=== PATIENT | male | born 1960 | race Caucasian/White ===

== ENCOUNTER 2017-11-05 15:52 | Emergency (ER) | payer BC, OTHER ==
[~2017-11-05] VITALS: Ht 175.3 cm; Wt 90.7 kg
[2017-11-05 15:57] VITALS: TEMP 36.8; Ht 175.3 cm; Wt 90.7 kg
[2017-11-05] MEDS ORDERED: SODIUM CHLORIDE 0.9% 1000ML 1,000 ML IV ONE (16:36)
[2017-11-05] MEDS ORDERED: SODIUM CHLORIDE 0.9% 1000ML 1,000 ML IV STA (16:36)
[2017-11-05] MEDS ORDERED: OPTIRAY 320 IV PRN (16:45)
--- NOTE | 2017-11-05 16:46 | EMERGENCY ROOM VISIT NOTE ---
History Report prepared by Jessica: Malissa Cerda Under the Supervision of: Dr. Francisco Hudson M.D. First contact with patient: 16:25 Chief Complaint: DIARRHEA Stated Complaint: CRAMPS W/ DIARRHEA W/ BLOOD TODAY,SICK 2 DAYS Nursing Triage Summary: pt reports NVD since wed. last night cramping and pain in abdomen became worse and then today noted blood in toilet after BM History of Present Illness The patient is a 57 year old male who presents to the Emergency Room with complaints of constant nausea beginning Wednesday, two days ago. Last night, the patient started to have lower abdominal cramps and diarrhea. The patient states his abdominal cramps have been intermittent since last night. This morning, he reports his abdominal cramps were so severe they caused him to dry heave. The patient notes this afternoon he thought he had to pass gas. He states when he passed gas, he also released some bright red blood with his gas. Presently, the patient reports his abdominal discomfort is constant. He denies any cough or back pain. The patient has a history of depression and GERD. The patient reports having a endoscopy and CT two years ago which showed the patient had IBS. He denies any recent antibiotic uses, recent travel or sick contact. He denies any history of hemorrhoids. Source of History: patient Onset: two days ago Position: other (generalized) Quality: other (nausea) Timing: constant Associated Symptoms: + nausea, + vomiting, + abdominal pain, No cough, No back pain Review of Systems See HPI for pertinent positives & negatives. A total of 10 systems reviewed and were otherwise negative. Past Medical & Surgical Medical Problems: (1) Depression (2) GERD (gastroesophageal reflux disease) (3) IBS (irritable bowel syndrome) Old medical records were reviewed. Nurse's notes were reviewed and I agree with. Family History Patient reports no known family medical history. Social History Smoking Status: Never Smoker Marital Status: Housing Status: lives with significant other Occupation Status: employed Current/Historical Medications Scheduled Acetaminophen (Tylenol), 1,000 MG PO PRN UD Amoxicillin & Pot Clavulanate (Augmentin 875-125 mg), 875 MG PO BID Ascorbic Acid (Vitamin C), 500 MG PO DAILY Calcium Carbonate-Vitamin D (Calcium), 1 TAB PO DAILY Cholecalciferol (Vitamin D3), 1 TAB PO DAILY Citalopram Hydrobromide (Citalopram Hydrobromide), 1 TAB PO DAILY Multivitamins/Minerals (Mvi With Minerals), 1 TAB PO DAILY Ranitidine (Zantac), 150 MG PO PRN Zinc Sulfate (Zinc Sulfate), 1 TAB PO DAILY Scheduled PRN Oxycodone Immediate Rel Tab (Roxicodone Ir), 1-2 TAB PO Q4H PRN for Severe Pain Allergies Coded Allergies: No Known Allergies (Unverified , 11/05/17) Physical Exam Vital Signs Date Time Temp Pulse Resp B/P (MAP) Pulse Ox O2 Delivery O2 Flow Rate FiO2 11/05/17 20:15 66 18 147/80 97 Room Air 11/05/17 19:03 71 18 135/75 97 Room Air 11/05/17 17:27 62 16 145/83 98 Room Air 11/05/17 15:57 36.8 77 20 169/83 94 Room Air Physical Exam General: Mildly-ill appearing middle-aged male, non-toxic appearing, in no acute distress. HEENT: Normal cephalic atraumatic. Pupils are equal round and reactive to light. Extraocular movements are intact. Oropharynx is pink with moist mucous membranes. No swelling of the mouth lips or tongue. Neck: Supple with a midline trachea. No meningeal signs or stiffness, no JVD or bruits. No Stridor. Chest: Clear to auscultation bilaterally. No wheezes or rhonchi. No increased work of breathing. Heart: regular rate and rhythm. Abdomen: Mild tenderness to left lower abdomen, no rebound guarding or rigidity. Extremities: No cyanosis clubbing or edema. No calf tenderness or assymetry Spine/Back. Non tender to palpation. No CVA tenderness Skin: Good turgor without rashes. Neurologic exam: Cranial nerves two through 12 are intact. Motor and sensation are intact and symmetrical throughout. Rectal: normal external exam, scant red stool guaiac positive. Medical Decision & Procedures ER Provider Diagnostic Interpretation: Radiology results as stated below per my review and radiologist interpretation: CT OF THE ABDOMEN AND PELVIS WITH CONTRAST FINDINGS: The liver, spleen, adrenal glands, kidneys and pancreas are unremarkable. There is no biliary or pancreatic ductal dilatation. There is no peripancreatic or pericholecystic infiltration with there is no hydronephrosis or high no ureter. The caliber of small and large bowel are normal. Mild wall thickening of the descending colon with minimal pericholecystic infiltration. There is no free air, pneumatosis or portal venous gas. The appendix is normal. There is sigmoid diverticulosis without evidence for acute diverticulitis. Major vasculature of the abdomen and pelvis is patent. There is no abscess. No suspicious osseous lesion is identified. IMPRESSION: Mild wall thickening with mild pericolonic infiltration involving the descending colon consistent with colitis. Differential considerations include infectious, ischemic and inflammatory etiologies. No free air or abscess. Electronically signed by: Td Mckeon M.D. Laboratory Results 11/05/17 17:20 Red Blood Count 5.29, Mean Corpuscular Volume 89.2, Mean Corpuscular Hemoglobin 32.3, Mean Corpuscular Hemoglobin Concent 36.2, Mean Platelet Volume 10.5, Neutrophils (%) (Auto) 81.7, Lymphocytes (%) (Auto) 8.5, Monocytes (%) (Auto) 9.1, Eosinophils (%) (Auto) 0.2, Basophils (%) (Auto) 0.1, Neutrophils # (Auto) 10.73, Lymphocytes # (Auto) 1.12, Monocytes # (Auto) 1.19, Eosinophils # (Auto) 0.02, Basophils # (Auto) 0.01 11/05/17 17:20 Test 11/05/17 16:55 11/05/17 17:20 Urine Color DK YELLOW Urine Appearance CLEAR (CLEAR) Urine pH 5.0 (4.5-7.5) Urine Specific Hitchcock 1.029 (1.000-1.030) Urine Protein 1+ (NEG) Urine Glucose (UA) NEG (NEG) Urine Ketones TRACE (NEG) Urine Occult Blood NEG (NEG) Urine Nitrite NEG (NEG) Urine Bilirubin NEG (NEG) Urine Urobilinogen NEG (NEG) Urine Leukocyte Esterase NEG (NEG) Urine WBC (Auto) 1-5 /hpf (0-5) Urine RBC (Auto) 0-4 /hpf (0-4) Urine Hyaline Casts (Auto) 5-10 /lpf (0-5) Urine Epithelial Cells (Auto) 10-20 /lpf (0-5) Urine Bacteria (Auto) NEG (NEG) White Blood Count 13.12 K/uL (4.8-10.8) Red Blood Count 5.29 M/uL (4.7-6.1) Hemoglobin 17.1 g/dL (14.0-18.0) Hematocrit 47.2 % (42-52) Mean Corpuscular Volume 89.2 fL (80-100) Mean Corpuscular Hemoglobin 32.3 pg (25-34) Mean Corpuscular Hemoglobin Concent 36.2 g/dl (32-36) Platelet Count 196 K/uL (130-400) Mean Platelet Volume 10.5 fL (7.4-10.4) Neutrophils (%) (Auto) 81.7 % Lymphocytes (%) (Auto) 8.5 % Monocytes (%) (Auto) 9.1 % Eosinophils (%) (Auto) 0.2 % Basophils (%) (Auto) 0.1 % Neutrophils # (Auto) 10.73 K/uL (1.4-6.5) Lymphocytes # (Auto) 1.12 K/uL (1.2-3.4) Monocytes # (Auto) 1.19 K/uL (0.11-0.59) Eosinophils # (Auto) 0.02 K/uL (0-0.5) Basophils # (Auto) 0.01 K/uL (0-0.2) RDW Standard Deviation 43.6 fL (36.4-46.3) RDW Coefficient of Variation 13.4 % (11.5-14.5) Immature Granulocyte % (Auto) 0.4 % Immature Granulocyte # (Auto) 0.05 K/uL (0.00-0.02) Anion Gap 8.0 mmol/L (3-11) Est Creatinine Clear Calc Drug Dose 97.6 ml/min Estimated GFR () 105.2 Estimated GFR (Non- 90.8 BUN/Creatinine Ratio 10.2 (10-20) Calcium Level 9.2 mg/dl (8.5-10.1) Total Bilirubin 0.9 mg/dl (0.2-1) Direct Bilirubin 0.1 mg/dl (0-0.2) Aspartate Amino Transf (AST/SGOT) 21 U/L (15-37) Alanine Aminotransferase (ALT/SGPT) 53 U/L (12-78) Alkaline Phosphatase 83 U/L (45-117) Total Protein 8.1 gm/dl (6.4-8.2) Albumin 4.1 gm/dl (3.4-5.0) Lipase 168 U/L (73-393) Laboratory studies as stated above per my review. Medications Administered Medications (Trade) Dose Ordered Sig/Mahin Route Start Time Stop Time Status Last Admin Dose Admin Sodium Chloride 1,000 ml @ 999 mls/hr Q1H1M STAT IV 11/05/17 16:36 11/05/17 17:36 DC 11/05/17 16:36 999 MLS/HR Sodium Chloride 1,000 ml @ 200 mls/hr Q5H ONCE IV 11/05/17 16:36 11/05/17 20:34 DC 11/05/17 17:35 200 MLS/HR Oxycodone HCl (Roxicodone Immediate Rel 5MG Home Pack) 1 homepack UD ONCE PO 11/05/17 20:15 11/05/17 20:16 DC 11/05/17 20:21 1 HOMEPACK Amoxicillin/ Clavulanate Potassium (Augmentin 875MG Home Pack) 1 homepack UD ONCE PO 11/05/17 20:15 11/05/17 20:16 DC 11/05/17 20:21 1 HOMEPACK ED Course 1634: Past medical records reviewed. The patient was evaluated in room B10, and a complete history and physical examination were performed. 1636: Ordered Sodium Chloride 1000 ml @ 200 mls/hr IV, Sodium Chloride 1000 ml @ 999 mls/hr IV. 1818: The patient Is headed over to CT. 1948: The patient is resting comfortably. 1999: Discussed the patient's case with Dr. Gopal ESPINAL. The patient will be evaluated for further management. 2015: Ordered Amoxicillin/Clavulanate Potassium 1 homepack PO, Oxycodone HCl 1 homepack PO. 2019: Upon reevaluation, the patient is resting comfortably. I discussed the results and treatment plan with him. He verbalized agreement of the treatment plan. The patient was discharged home. Medical Decision Differential diagnoses include: GI bleed, colitis, diverticulitis, dehydration, electrolyte or metabolic abnormality This patient comes in as described above. he's had crampy abdominal pain more so on the left side. He had episode of bloody stool that was bright red. On exam, he has no peritonitis. IV access was established. His white count is mildly elevated. his hemoglobin is normal and not low. He has no acute electrolyte or metabolic abnormalities. He has no peritonitis. His white count is mildly elevated. He has no acute electrode or metabolic abnormalities. He was hydrated with IV normal saline here he was offered pain medication but declined. I did a rectal exam there is no masses or abnormalities seen or felt. He does have a small amount of bloody mucus/stool that was guaiac positive. CAT scan shows findings consistent with a mild colitis. I discussed the case Dr. Herron we will put him on Augmentin 875 mg twice a day the first dose was given here as well as a prescription home pack for pain but primarily use acetaminophen but do not exceed the over-the- counter recommended dosages. For breakthrough pain, he was given OxyIR if needed one or 2 pills every 4 hours as needed he was warned that this could make him drowsy do not take for drinking, driving, working Dr. Herron's office is can call Wednesday and give him an to be seen and likely have endoscopy. He is to return over the weekend if: increasing pain or bleeding, worsening of symptoms, any new problems or concerns. Medication Reconcilliation Current Medication List: was personally reviewed by me Blood Pressure Screening Patient's blood pressure: Normal blood pressure Consults Time Called: 1957 Consulting Physician: Dr. Gopal [facility]ado [facility] Returned Call: 1999 Discussed the patient's case with Dr. Gopal [facility]. The patient will be evaluated for further management. Impression Primary Impression: Colitis Scribe Attestation The scribe's documentation has been prepared under my direction and personally reviewed by me in its entirety. I confirm that the note above accurately reflects all work, treatment, procedures, and medical decision making performed by me. Departure Information Dispostion Home / Self-Care Prescriptions Oxycodone Immediate Rel Tab (ROXICODONE IR) 5 Mg Tab 1-2 TAB PO Q4H Y for Severe Pain, #15 TAB Prov: Francisco Hudson M.D. 11/05/17 Amoxicillin & Pot Clavulanate (Augmentin 875-125 mg) 1 Tab Tab 875 MG PO BID for 10 Days, #20 TAB Prov: Francisco Hudson M.D. 11/05/17 Referrals Bethany Melton M.D. (PCP) Forms HOME CARE DOCUMENTATION FORM, IMPORTANT VISIT INFORMATION, WORK / SCHOOL INSTRUCTIONS Patient Instructions My [facility] Additional Instructions Rest. Mild diet. Use Augmentin 875 mg twice a day for 10 daysantibiotic For pain, may use Tylenol(Acetaminophen) a maximum of 650 mg every 6 hours. Do not take with any other medications containing Tylenol/acetaminophen Follow-up with Dr. Herron from GI. They will call you this week and you will likely need colonoscopy Return to ER if: increasing pain or bleeding, worsening of symptoms, fever orchills, any new problems or concerns
[2017-11-05] MEDS ORDERED: ACET-1256 PO (17:23)
[2017-11-05] MEDS ORDERED: CITA10TA4 PO (17:23)
[2017-11-05] MEDS ORDERED: MULT-513 PO (17:23)
[2017-11-05] MEDS ORDERED: CHOL1000 PO (17:23)
[2017-11-05] MEDS ORDERED: ASCO1CAP3 PO (17:23)
[2017-11-05] MEDS ORDERED: ZNTT/150 PO (17:23)
[2017-11-05] MEDS ORDERED: CALC-51 PO (17:23)
[2017-11-05] MEDS ORDERED: ZINC1CAP PO (17:23)
[2017-11-05 17:43] LABS: BASO % 0.1 %; BASO ABS # 0.01 K/uL (0-0.2); EOS % 0.2 %; EOS ABS # 0.02 K/uL (0-0.5); HEMATOCRIT 47.2 % (42-52); HEMOGLOBIN 17.1 g/dL (14.0-18.0); IG# 0.05 K/uL (0.00-0.02); LYMPH % 8.5 %; LYMPH ABS # 1.12 K/uL (1.2-3.4); MEAN CELL VOLUME 89.2 fL (80-100); MEAN CORPUSCULAR HEMOGLOBIN 32.3 pg (25-34); MEAN CORPUSCULAR HGB CONC 36.2 g/dl (32-36); MEAN PLATELET VOLUME 10.5 fL (7.4-10.4); MONO % 9.1 %; MONO ABS # 1.19 K/uL (0.11-0.59); NEUT % 81.7 %; NEUT ABS # 10.73 K/uL (1.4-6.5); PLATELET COUNT 196 K/uL (130-400); RED CELL DISTRIBUTION WIDTH CV 13.4 % (11.5-14.5); RED CELL DISTRIBUTION WIDTH SD 43.6 fL (36.4-46.3); WHITE BLOOD COUNT 13.12 K/uL (4.8-10.8)
[2017-11-05 18:03] LABS: ALBUMIN 4.1 gm/dl (3.4-5.0); CALCIUM 9.2 mg/dl (8.5-10.1); CREATININE 0.93 mg/dl (0.60-1.40); POTASSIUM 3.8 mmol/L (3.5-5.1)
[2017-11-05 18:06] LABS: TOTAL PROTEIN 8.1 gm/dl (6.4-8.2)
--- NOTE | 2017-11-05 19:03 | DIAGNOSTIC IMAGING REPORT ---
CT OF THE ABDOMEN AND PELVIS WITH CONTRAST CLINICAL HISTORY: Abdominal pain with bloody diarrhea. COMPARISON STUDY: None. TECHNIQUE: Following IV administration of 120 mL of Optiray-320, axial images of the abdomen and pelvis were obtained from the lung bases to the proximal femurs. Images were reviewed in the axial, sagittal, and coronal planes. IV contrast was administered without complication. A dose lowering technique was utilized adhering to the principles of ALARA. CT DOSE: 513.26 mGy.cm FINDINGS: The liver, spleen, adrenal glands, kidneys and pancreas are unremarkable. There is no biliary or pancreatic ductal dilatation. There is no peripancreatic or pericholecystic infiltration with there is no hydronephrosis or high no ureter. The caliber of small and large bowel are normal. Mild wall thickening of the descending colon with minimal pericholecystic infiltration. There is no free air, pneumatosis or portal venous gas. The appendix is normal. There is sigmoid diverticulosis without evidence for acute diverticulitis. Major vasculature of the abdomen and pelvis is patent. There is no abscess. No suspicious osseous lesion is identified. IMPRESSION: Mild wall thickening with mild pericolonic infiltration involving the descending colon consistent with colitis. Differential considerations include infectious, ischemic and inflammatory etiologies. No free air or abscess. Electronically signed by: Td Mckeon M.D. 11/05/2017 7:02 PM Dictated Date/Time: 11/05/2017 6:57 PM
[2017-11-05] MEDS ORDERED: AMOX875T PO (20:05)
[2017-11-05] MEDS ORDERED: OXYC1TAB3 PO (20:05)
[2017-11-05 20:15] VITALS: BP 147/80; PULSE 66; O2SAT 97
[2017-11-05] MEDS ORDERED: OXYCODONE IR HOME PACK PO ONE (20:15)
[2017-11-05] MEDS ORDERED: AMOXICIL/CLAVU 875MG HOME PACK PO ONE (20:15)
== END 2017-11-05 20:26 | disposition home or self-care (01) ==
LOC: C.EDB 15:55
DX: K52.9 Noninfective gastroenteritis and colitis, unspecified (principal); K21.9 Gastro-esophageal reflux disease without esophagitis; F32.9 Major depressive disorder, single episode, unspecified; Z98.890 Other specified postprocedural states; Z79.899 Other long term (current) drug therapy

== ENCOUNTER → 2018-05-20 | Outpatient (CLI) | payer OTHER ==
[~2018-05-20] MED LIST: ACET-1256 PO; ASCO1CAP3 PO; CALC-51 PO; CHOL1000 PO; CITA10TA4 PO; MULT-513 PO; RANI150T85 PO; ZINC1CAP PO
--- NOTE | 2018-05-21 06:39 | PAP/PSG TECHNICIAN REPORT ---
[facility] [employer] Art [employer] Polysomnogram Report Study name: None Report date: 05/21/2018 Study date: 05/20/2018 Referring Physician: Bethany Melton MD Name: KANDY FRAZIER Interpreting Physician: Lalo Carlson M.D. Date of : 1960 [employer] Art Teacher: Clayton Clarke RPSGT. Sex: Male Age: 57 StudyType: PSG PAP Weight: Height: 57 years, Height 5' 8" BMI: Medications: CITALOPRAM 20 MG, RANITIDINE 150 MG, Patient History PATIENT HAS HISTORY OF SNORING, LOW ENERGY AND DAYTIME SLEEPINESS. HE RECENTLY HAD A HOME SLEEP STUDY DONE AND WAS POSITIVE FOR DIONNA. HE IS HERE TODAY FOR A CPAP TITRATION. ESS = 14 RM 1 Parameters Monitored NPSG: E1-M2, E2-M1, Fp1-M2, Fp2-M1, F3-M2, F4-M2, F4-M1, C3-M2, C4-M2, C4-M1, O1-M2, O2-M2, O2-M1, T3-M2, T4-M1, P3-M2, P4-M1, CHIN1, CHIN2, HR, EKG, Legs, PFLOW, SNOR, FLOW, CFLOW, Tidal Volume, THOR, ABDO, SpO2, PLTH, CPRESS, ETCO2 Wave, ETCO2, pH Sleep Architecture Sleep Stages Time at Lights Off 10:07:06 PM STAGES Time (min.) TST (%) Time at Lights On 5:40:36 AM Wake 41.5 -- Total Recording Time (TRT) 454.50 min. N1 12.5 3 Total Sleep Period (TSP) 435.5 min. N2 190.0 46 Total Sleep Time (TST) 412.0min. N3 116.5 28 Awake Time 41.5 min. REM 93.0 23 Wake after Sleep Onset 23.5 min. Sleep Efficiency (SE) 91 % Sleep Onset Latency (YING) 18.0 min. Number of Stage 1 Shifts None Awakenings 23 Stage Changes 95 Number of REM periods 6 REM 93.0 23 REM Latency 149.0 min. NREM 319.0 77 Body Position Analysis Supine Right Left Side Prone Vertical Total Sleep Time (min.) 76.5 246.5 113.0 359.53 0.0 0.0 Total Sleep Time (%) 13% 60% 27% 87 0% N/A% Total Sleep Time REM (min.) 29.0 25.0 39.0 None 0.0 0.0 Total Sleep Time NREM (min.) 23.5 221.5 74.0 None 0.0 0.0 Intermittent Wake (min.) 24.0 12.2 5.3 None 0.0 0.0 Total Sleep Period (%) 14% None None None None None Arousals Myoclonus (PLM) * Events Count Index Events Count Index Spontaneous 29 4 Events Awake (PLMW) 29 41.9 Respiratory 4 0.6 Events Asleep w/ Arousal (PLMA) 18 2.6 PLM 16 3 Events Asleep w/o Arousal (PLMS) 133 19.4 Snoring 6 1 Total Asleep 151 22.0 Total 53 8 Total 180 24 Respiratory Analysis * CA OA MA CH H RERA Total Count 0 2 0 0 13 2 15 Index 0.0 0.3 0.0 0 1.9 0 2.5 Mean Duration 0.0 14.3 0.0 0.00 17.0 15.9 16.6 Longest Duration 0.0 15.9 0.0 0.00 0.0 17.6 24.0 Respiratory Event Summary Total Supine ~Supine Right Left Prone REM NREM Apneas Count 2 2 0 0 0 N/A 0 2 Index 0.3 2 0 0.0 0.0 N/A 0 0 Hypopneas (4% Desat) Count 13 3 10 7 3 N/A 0 13 Index 1.9 3.4 2 1.7 1.6 N/A 0.0 2.4 Apneas & All Hypopneas Count 15 5 10 7 3 N/A 0 15 Index 2.2 6 2 2 2 N/A 0.0 2.8 Respiratory Events (Knife Machine Operator+All Hyp+RERA) Count 15 6 11 7 4 N/A 0 15 Index 2.5 7 2 1.7 2.1 N/A 0.0 3.2 Respiratory Related Arousal Count 4 6 3 2 1 N/A 0 4 Index 0.6 1 1 0 1 N/A 0 1 Snoring Analysis Supine Right Left Prone REM NREM Total Snore duration 3.6 min Snores count 4 111 26 N/A 16 125 141 Snore mean duration 1.5 Sec Snores index 5 27 14 N/A 10.3 23.5 20.5 TST with snoring (%) 0.9% Desaturation Event Summary: Minimum %SpO2 Event Count Mean/Min/Max Duration(sec.) Desaturation Index % Time In Bed > 90 23 28.1 / 12.3 / 55.5 4.5 68.2 86 - 90 5 19.8 / 12.5 / 37.8 2.1 31.8 81 - 85 0 N/A 0.0 0.0 76 - 80 0 N/A 0.0 0.0 71 - 75 0 N/A 0.0 0.0 66 - 70 0 N/A 0.0 0.0 61 - 65 0 N/A 0.0 0.0 56 - 60 0 N/A 0.0 0.0 51 - 55 0 N/A 0.0 0.0 < 50 0 N/A 0.0 0.0 Total REM NREM Awake <50% 0.0 min. 0.0 min. 0.0 min. 0.0 min. 51 - 60% 0.0 min. 0.0 min. 0.0 min. 0.0 min. 61 - 70% 0.0 min. 0.0 min. 0.0 min. 0.0 min. 71 - 80% 0.0 min. 0.0 min. 0.0 min. 0.0 min. 81 - 90% 144.3 min. 26.4 min. 100.0 min. 17.9 min. 91 - 100% 309.1 min. 66.6 min. 219.0 min. 23.6 min. Average 91 91 91 92 Minimum SpO2 84 87 84 85 Desaturation Event Index 3.3 0.0 3.6 8.7 # Desat. Events below 89% 13 N/A 11 2 Time(%) with Saturation below 89% 2.4 0.7 1.4 0.2 Time(min.) with Saturation below 89% 10.7 3.3 6.4 1.0 Time (mins) REM (mins) NREM (mins) % of TST SpO2 Below 90% 19 N/A N19 10.8 SpO2 Below 88% 4 0 0 1 Heart Rate Analysis Min (bpm) Max (bpm) Average (bpm) Awake 49 84 61 NREM 48 83 56 REM 47 72 56 Overall 47 83 56 Supplemental O2 Values Minimum O2 level: None Value Start Time End Time [employer] Art Teacher Comments Mr. Macafee slept in the right, left and supine positions. No cardiac arrhythmia noted. Leg movements noted. No bruxism noted. CPAP was initiated at +4 CMH2O and up-titrated to an optimal level of +9 CMH2O, which nearly eliminated all respiratory events and snoring. A [employer] Simplus size medium full face mask was used during titration Mr. Frazier awoke to use the restroom 0 times during the night. Mr. Frazier stated I did not sleep as well as I do when I am in my own bed. The final report will be interpreted and signed by a sleep physician. The completed physician report will then be placed in the patient medical record. Therapy Event: Therapy (cm H20) 4 5 6 7 8 9 Total Time at Pressure (min.) 82.9 8.0 78.2 126.4 87.3 70.7 TST at Pressure (min.) 64.9 8.0 71.7 122.4 76.8 68.2 # Periods 1 1 1 1 1 1 Sleep Onset (min.) 18.0 0.0 0.0 0.0 0.0 0.0 REM Onset (min.) N/A N/A 76.1 0.0 20.5 58.7 Sleep Efficiency % 78 100 91 96 88 96 Wakefulness (%) 21.7 0.0 8.3 3.2 12.0 3.5 Wakefulness (min.) 18.0 0.0 6.5 4.0 10.5 2.5 NREM 1 (%) 3.6 0.0 3.2 2.0 2.3 3.5 NREM 1 (min.) 3.0 0.0 2.5 2.5 2.0 2.5 NREM 2 (%) 44.0 17.0 57.1 36.8 29.5 49.8 NREM 2 (min.) 36.5 1.4 44.6 46.5 25.8 35.2 NREM 3 (%) 30.6 83.0 28.8 28.9 3.4 31.8 NREM 3 (min.) 25.4 6.6 22.5 36.5 3.0 22.5 REM (%) 0.0 0.0 2.6 29.2 52.7 11.3 REM (min.) 0.0 0.0 2.1 36.9 46.0 8.0 # Arousals 14 3 10 17 3 6 Arousal Index 12.9 22.6 8.4 8.3 2.3 5.3 # Snore 30 30 15 56 2 8 Snore Index 27.7 226.1 12.6 27.4 1.6 7.0 AHI 2.8 0.0 5.0 0.5 3.9 0.0 AHI Supine N/A N/A N/A N/A 7.5 0.0 AHI Non-Supine 2.8 0.0 5.0 0.5 0.0 0.0 NREM AHI 2.8 0.0 5.2 0.7 9.8 0.0 REM AHI N/A N/A 0.0 0.0 0.0 0.0 RDI 2.8 0.0 5.9 0.5 3.9 0.9 # Obstructive 0 0 0 0 2 0 # Central Ap 0 0 0 0 0 0 # Mixed 0 0 0 0 0 0 # Hypopneas 3 0 6 1 3 0 RERAS 0 0 1 0 0 1 Total Respiratory Events 3 0 7 1 5 1 Time Below SpO2 89.00% (min.) 1.4 0.4 0.4 1.2 5.2 1.1 Mean NREM SpO2 (%) 90 91 92 92 91 91 Mean REM SpO2 (%) N/A N/A 91 92 90 92 Mean Sleep SpO2 (%) 90 91 92 92 91 91 Min NREM SpO2 (%) 87 88 87 86 84 87 Min REM SpO2 (%) N/A N/A 89 90 87 91 Position Supine (min.) 0.0 0.0 0.0 0.0 40.0 12.5 Position Non-supine (min.) 64.9 8.0 71.7 122.4 36.8 55.7 LM Index Sleep 37.0 22.6 21.8 21.6 14.1 17.6 LM Index NREM 37.0 22.6 22.4 14.7 7.8 9.0 LM Index REM N/A N/A 0.0 37.4 18.3 82.5 Mean Heart Rate (bpm) 62 59 55 54 55 54 Min Heart Rate (bpm) 54 55 49 49 47 49
--- NOTE | 2018-05-24 12:16 | POLYSOMNOGRAPH REPORT ---
CLINICAL DATA: A 57-year-old male referred by Dr. Bethany Melton for a CPAP titration. He had a home sleep apnea test, which was positive for sleep apnea. He does have snoring, fatigue, and daytime sleepiness. His [place] sleepiness score was elevated at 14/24. SLEEP ARCHITECTURE: Total sleep period was 435.5 minutes. Total sleep time was 412 minutes divided between 319 minutes of non-REM sleep and 93 minutes of REM sleep. Sleep latency was 18 minutes. REM latency was 149 minutes. Sleep efficiency was 91%. Wake after sleep onset was 22.5 minutes. Sleep consisted of stage N1 3%, stage N2 46%, stage N3 28%, and REM 23%. AROUSAL DATA: 53 arousals were recorded for an index of 8 per hour. 29 were spontaneous. PLM DATA: Mildly elevated limb movements during sleep were noted. There were 151 limb movements during sleep noted for an index of 22 per hour with an arousal index of 2.6 per hour. RESPIRATORY DATA: The AHI was 2.2. There were 2 obstructive apneic episodes. The longest apneic episode was 15.9 seconds. There were 13 hypopneic episodes with a mean duration of 17 seconds. OXIMETRY DATA: No significant hypoxemia was seen. Oxygen juan was 84% during non-REM sleep. Mean saturation was 91%. Time below 88% was 4 minutes. EKG: Heart rates ranged from 48-83 beats per minute. No arrhythmias were noted. GLOBAL UPSTREAM MARKETING MANAGER'S COMMENTS AND TREATMENT SUMMARY: The patient slept in the right, left, and supine position. A [employer] Simplus size medium full face mask was used. The patient was titrated up to 9 cm of water pressure. At his final pressure setting, he slept for 68 minutes with an AHI of zero. IMPRESSION: Obstructive sleep apnea corrected with CPAP 9 cm of water pressure, Ling and [employer] size medium full face mask. RECOMMENDATIONS: The patient should be started on the above noted treatment regimen and seen back in followup within 90 days to document efficacy and compliance. [facility]
== END | disposition home or self-care (01) ==
LOC: C.NEUR 20:00
PROVIDERS: ATTEND Internal Medicine
DX: G47.33 Obstructive sleep apnea (adult) (pediatric) (principal)